=== PATIENT | male | born 1985 | race Caucasian/White ===

== ENCOUNTER 2018-04-12 13:10 | Emergency (ER) | payer MEDICAID ==
[~2018-04-12] VITALS: Ht 160 cm; Wt 73.5 kg
[2018-04-12 13:15] VITALS: BP 138/87; PULSE 99; RESP 19; Ht 160 cm; Wt 73.5 kg
--- NOTE | 2018-04-12 13:50 | ERD ---
ER Documentation Chief Complaint Chief Complaint throat pain x this am HPI 32-year-old male presents with history of feeling like there is a foreign body in his throat. States that he went out last night and drank some beers, woke up this morning throughout the night since then has felt foreign body sensation. Denies any stridor or wheezing but states that the feeling makes him want to clear up. Denies eating any foods that might of gotten stuck in there. Denies any throat pain, drooling, trismus, difficulty swallowing fevers, chills., Denies past medical history. Denies allergies. Denies medications. Denies surgeries. Denies alcohol, tobacco, drug use. Up to date on vaccines. ROS All systems reviewed and are negative except as per history of present illness. Medications Home Meds Active Scripts Diphenhydramine Hcl* (Benadryl*) 50 Mg Cap, 50 MG PO Q6 PRN for ALLERGIC REACTION, #30 CAP Prov:JARRELL GASTELUM 04/12/18 Prednisone* (Prednisone*) 20 Mg Tab, 40 MG PO DAILY for 4 Days, TAB Prov:JARRELL GASTELUM 04/12/18 Allergies Allergies: Coded Allergies: No Known Allergy (Unverified , 04/12/18) PMhx/Soc Medical and Surgical Hx: pt denies Medical Hx, pt denies Surgical Hx Hx Alcohol Use: Yes Hx Substance Use: No Hx Tobacco Use: No Smoking Status: Never smoker FmHx Family History: No diabetes, No coronary disease, No other Physical Exam Vitals Vital Signs Date Temp Pulse Resp B/P (MAP) Pulse Ox O2 O2 Flow FiO2 Time Delivery Rate 04/12/18 97.0 99 19 138/87 97 13:15 (104) Physical Exam Const: No acute distress Head: Atraumatic Eyes: Normal Conjunctiva ENT: Normal External Ears, Nose and Mouth. Airway is patent, without stridor, however the uvula is is erythematous and edematous.. No cyanosis or pallor. No drooling noted. No tenderness to palpation upon manipulation of the cricoid cartilage. No foreign bodies or obstructions noted. Neck: Full range of motion. No meningismus. Resp: Clear to auscultation bilaterally Cardio: Regular rate and rhythm, no murmurs Abd: Soft, non tender, non distended. Normal bowel sounds Skin: No petechiae or rashes Back: No midline or flank tenderness Ext: No cyanosis, or edema Neur: Awake and alert Psych: Normal Mood and Affect Results 24 hrs Current Medications Medications Dose Sig/Ivy Start Time Status Last (Trade) Ordered Route PRN Stop Time Admin Dose Reason Admin 10 mg ONCE ONCE 04/12/18 DC 04/12/18 Dexamethasone IM 14:00 14:03 (Decadron) 04/12/18 14:01 50 mg ONCE ONCE 04/12/18 DC 04/12/18 Diphenhydrami IM 14:00 14:03 ne HCl 04/12/18 14:01 (Benadryl) Famotidine 40 mg ONCE ONCE 04/12/18 DC 04/12/18 (Pepcid) PO 14:00 14:03 04/12/18 14:01 Procedures/MDM MDM: 32-year-old male presents with history of feeling like there is a foreign body in his throat. States that he went out last night and drank some beers, woke up this morning throughout the night since then has felt foreign body sensation. Denies any stridor or wheezing but states that the feeling makes him want to clear up. Denies eating any foods that might of gotten stuck in there. Denies any throat pain, drooling, trismus, difficulty swallowing fevers, chills. Patient given IM Decadron, Benadryl, and p.o. Pepcid. I will suspicion for anaphylaxis, airway obstruction, angioedema, epiglottitis, peritonsillar abscess, or other emergent condition. Patient exhibited no signs of airway obstruction throughout the ER course tolerated the allergic reaction treatment well. Patient discharged with Rx for Decadron and Benadryl. Patient discharged with strict ER precautions. Patient advised to follow up with PMD. All questions answered at discharge. Departure Diagnosis: Primary Impression: Uvulitis Condition: Stable JARRELL GASTELUM Apr 12, 2018 13:50
[2018-04-12] MEDS ORDERED: DEXAMETHASONE 10 MG/ML 1 ML INJ IM ONE (14:00)
[2018-04-12] MEDS ORDERED: DIPHENHYDRAMINE 50 MG INJ IM ONE (14:00)
[2018-04-12] MEDS ORDERED: FAMOTIDINE 20 MG TAB PO ONE (14:00)
[2018-04-12] MEDS ORDERED: BEN50 PO (15:43)
[2018-04-12] MEDS ORDERED: PRED20TA PO (15:43)
== END 2018-04-12 16:10 | disposition home or self-care (01) ==
LOC: FTE 13:10
DX: K12.2 Cellulitis and abscess of mouth (principal)
CPT/HCPCS: 70360; 96372; J1100; J1200; Z7502; Z7610

== ENCOUNTER 2018-04-20 12:32 | Emergency (ER) | payer MEDICAID ==
[~2018-04-20] VITALS: Ht 165.1 cm; Wt 70.5 kg
[~2018-04-20 12:32] MED LIST: BEN50 PO; PRED20TA PO
[2018-04-20 12:34] VITALS: Ht 165.1 cm; Wt 70.5 kg
[2018-04-20] MEDS ORDERED: SOD CHLORIDE 0.9% 1,000 ML IV STA (15:31)
[2018-04-20] MEDS ORDERED: ONDANSETRON 4 MG INJ IV STA (15:31)
--- NOTE | 2018-04-20 15:37 | ERD ---
ER Documentation Chief Complaint Chief Complaint headache x 3 days with n/v; no neuro deficits HPI Patient is a 32-year-old male with no past medical history presents the ER for concerns of headache for the last 3 days. Patient states yesterday he developed dizziness. He describes his dizziness to be a room spinning sensation. Patient states he also feels nauseous and has been vomiting. Patient reports vomiting 3 times today. Patient states without movement his dizziness is minimal. Patient denies any visual changes, fevers, chills, chest pain, shortness of breath or LOC. Patient denies any unilateral weakness, slurred speech, difficulty ambulating. Patient was seen here last week for concerns of a foreign body sensation in his throat. Patient states his symptoms have fully resolved. ROS All systems reviewed and are negative except as per history of present illness. Medications Home Meds Active Scripts Acetaminophen* (Tylophen*) 500 Mg Capsule, 1 CAP PO Q6H PRN for PAIN AND OR ELEVATED TEMP, #20 CAP Prov:SERGIO KAPLAN PA-C 04/20/18 Ondansetron (Ondansetron Odt) 4 Mg Tab.rapdis, 4 MG PO Q6H PRN for NAUSEA AND/OR VOMITING, #10 TAB Prov:SERGIO KAPLAN-C 04/20/18 Meclizine Hcl* (Antivert*) 12.5 Mg Tab, 12.5 MG PO Q6H PRN for DIZZINESS, #20 TAB Prov:SERGIO KAPLAN-C 04/20/18 Diphenhydramine Hcl* (Benadryl*) 50 Mg Cap, 50 MG PO Q6 PRN for ALLERGIC REACTION, #30 CAP Prov:JARRELL GASTELUM 04/12/18 Prednisone* (Prednisone*) 20 Mg Tab, 40 MG PO DAILY for 4 Days, TAB Prov:JARRELL GASTELUM 04/12/18 Allergies Allergies: Coded Allergies: No Known Allergy (Unverified , 04/12/18) PMhx/Soc Hx Alcohol Use: Yes Hx Substance Use: No Hx Tobacco Use: No FmHx Family History: No diabetes Physical Exam Vitals Vital Signs Date Temp Pulse Resp B/P (MAP) Pulse Ox O2 O2 Flow FiO2 Time Delivery Rate 04/20/18 97.8 96 17 142/94 100 12:34 (110) Physical Exam GENERAL: Well-developed, well-nourished female. Appears in no acute distress. Speaking in full sentences. HEAD: Normocephalic, atraumatic. No deformities or ecchymosis. EYE: Pupils equal, round, and reactive to light. EOMs intact. No conjunctival erythema. No eye discharge. ENT: External ear without any masses or tenderness. Auditory canals clear bilaterally. TM visualized bilaterally, non-erythematous, non-bulging. Nasal mucosa pink with no discharge. Oropharynx is pink without any tonsillar erythema or exudates. No uvula deviation. No kissing tonsils. NECK: Supple. No meningismus. Normal ROM of the neck. LUNG: Clear to auscultation bilaterally. No rhonchi, wheezing, rales or coarse b reath sounds. HEART: Regular rate and rhythm. No murmurs, rubs or gallops. EXTREMITES: Equal pulses bilaterally. No peripheral clubbing, cyanosis or edema. No unilateral leg swelling. NEUROLOGIC: Alert and oriented x3, cooperative. Mood and affect appropriate to situation. Cranial nerves II through XII are grossly intact. Normal speech. Motor exam: 5/5 strength in upper and lower extremities. Sensory exam: Sensation intact to light touch on all four extremities. Cerebellar function exam: Rapid alternating movements intact. No dysmetria on [id number] and [id number]-ix-[id number] test. Steady gait. No pronator drift. SKIN: Normal color. Warm and dry. No rashes or lesions. Result Diagram: 04/20/18 1536 04/20/18 1536 Results 24 hrs Laboratory Tests Test 04/20/18 15:36 White Blood Count 12.7 10^3/ul Red Blood Count 5.68 10^6/ul Hemoglobin 16.7 g/dl Hematocrit 48.6 % Mean Corpuscular Volume 85.6 fl Mean Corpuscular Hemoglobin 29.4 pg Mean Corpuscular Hemoglobin Concent 34.4 g/dl Red Cell Distribution Width 12.4 % Platelet Count 314 10^3/UL Mean Platelet Volume 10.6 fl Immature Granulocytes % 0.400 % Neutrophils % 83.8 % Lymphocytes % 12.9 % Monocytes % 2.5 % Eosinophils % 0.2 % Basophils % 0.2 % Nucleated Red Blood Cells % 0.0 /100WBC Immature Granulocytes # 0.050 10^3/ul Neutrophils # 10.6 10^3/ul Lymphocytes # 1.6 10^3/ul Monocytes # 0.3 10^3/ul Eosinophils # 0.0 10^3/ul Basophils # 0.0 10^3/ul Nucleated Red Blood Cells # 0.0 10^3/ul Sodium Level 141 mmol/L Potassium Level 3.8 mmol/L Chloride Level 103 mmol/L Carbon Dioxide Level 26 mmol/L Anion Gap 12 Blood Urea Nitrogen 15 mg/dl Creatinine 0.75 mg/dl Est Glomerular Filtrat Rate mL/min > 60 mL/min Glucose Level 138 mg/dl Calcium Level 10.0 mg/dl Total Bilirubin 0.7 mg/dl Direct Bilirubin 0.00 mg/dl Indirect Bilirubin 0.7 mg/dl Aspartate Amino Transf (AST/SGOT) 25 IU/L Alanine Aminotransferase (ALT/SGPT) 27 IU/L Alkaline Phosphatase 128 IU/L Total Protein 8.4 g/dl Albumin 4.7 g/dl Globulin 3.70 g/dl Albumin/Globulin Ratio 1.27 Current Medications Medications Dose Sig/Ivy Start Time Status Last (Trade) Ordered Route PRN Stop Time Admin Dose Reason Admin Sodium 1,000 ml @ Q1H STAT 04/20/18 04/20/18 Chloride 1,000 mls/hr IV 15:31 04/20/18 15:41 16:30 Ondansetron 4 mg ONCE STAT 04/20/18 DC 04/20/18 HCl (Zofran IV 15:31 04/20/18 15:44 Inj) 15:33 Meclizine 25 mg ONCE ONCE 04/20/18 DC 04/20/18 HCl PO 16:00 04/20/18 15:44 (Antivert) 16:01 Procedures/MDM MEDICAL DECISION MAKING: This is a 32-year-old male who presents the ER for concerns of headache times 3 days as well as dizziness times 1 day. Patient states he did have some vomiting this morning. Patient describes his dizziness to be a room spinning sensation. Dizziness is worse with positional changes. Patient denies any unilateral weakness, slurred speech or difficulty ambulating. Vital signs were reviewed. Patient was afebrile. Patient was not hypoxic. Full neuro exam was normal. IV line was established. Blood work was obtained. CBC showed no evidence of severe anemia. Slight elevation WBC count noted however likely due to recent vomiting. CMP showed no evidence of electrolyte abnormalities, severe acidosis, alkalosis, renal failure, or liver disease. Upon reexamination of symptoms, patient reported improvement in symptoms. At this time, patient presentation is most consistent with benign paroxysmal positional vertigo. Low suspicion for meningitis, encephalitis, intracranial hemorrhage, TIA, CVA, sclerosis, labyrinthitis, vestibular neuritis, severe electrolyte abnormalities, sepsis. Patient was nontoxic, [id number] prior to discharge. PRESCRIPTIONS: Meclizine Zofran Tylenol DISCHARGE: At this time, patient is stable for discharge and outpatient management. I have instructed the patient to follow-up with his/her primary care physician in 1-2 days. If symptoms persist, patient may need to see a specialist for further examinations and testing. I have instructed the patient to promptly return to the ER at any time for any new or worsening symptoms including increased increased pain, fever, nausea, vomiting, numbness, weakness, slurred speech, LOC. The patient and/or family expressed understanding of and agreement with this plan. All questions were answered. Home care instructions were provided. Patients blood pressure was elevated (>120/80) but appears stable without evidence of hypertensive emergency, hypertensive urgency or end-organ failure. I had discussion with the patient about the risks of hypertension. I have advised the patient to follow up with his/her primary care physician for outpatient monitoring and treatment for hypertension in 2-3 days. I have instructed the patient to return to the ER for any new or worsening symptoms including chest pain, shortness of breath, headache, blurred vision, confusion, nausea, vomiting or LOC. Disclaimer: Inadvertent spelling and grammatical errors are likely due to EHR/dictation software use and do not reflect on the overall quality of patient care. Also, please note that the electronic time recorded on this note does not necessarily reflect the actual time of the patient encounter. Departure Diagnosis: Primary Impression: Benign positional vertigo Laterality: unspecified laterality Qualified Codes: H81.10 - Benign paroxysmal vertigo, unspecified ear Additional Impression: Headache Headache type: unspecified Headache chronicity pattern: unspecified pattern Intractability: not intractable Qualified Codes: R51 - Headache Condition: Fair Patient Instructions: Self-Care for Headaches, Benign Positional Vertigo Referrals: COMMUNITY CLINICS YOU HAVE RECEIVED A MEDICAL SCREENING EXAM AND THE RESULTS INDICATE THAT YOU DO NOT HAVE A CONDITION THAT REQUIRES URGENT TREATMENT IN THE EMERGENCY DEPARTMENT. FURTHER EVALUATION AND TREATMENT OF YOUR CONDITION CAN WAIT UNTIL YOU ARE SEEN IN YOUR DOCTORS OFFICE WITHIN THE NEXT 1-2 DAYS. IT IS YOUR RESPONSIBILITY TO MAKE AN APPOINTMENT FOR FOLOW-UP CARE. IF YOU HAVE A PRIMARY DOCTOR --you should call your primary doctor and schedule an appointment IF YOU DO NOT HAVE A PRIMARY DOCTOR YOU CAN CALL OUR PHYSICIAN REFERRAL HOTLINE AT IF YOU CAN NOT AFFORD TO SEE A PHYSICIAN YOU CAN CHOSE FROM THE FOLLOWING [facility] [address] [facility] [address] [facility] [address] [facility] [address] [facility] [address] [facility]. [facility] [address] [facility]. [facility] YOU HAVE RECEIVED A MEDICAL SCREENING EXAM AND THE RESULTS INDICATE THAT YOU DO NOT HAVE A CONDITION THAT REQUIRES URGENT TREATMENT IN THE EMERGENCY DEPARTMENT. FURTHER EVALUATION AND TREATMENT OF YOUR CONDITION CAN WAIT UNTIL YOU ARE SEEN IN YOUR DOCTORS OFFICE WITHIN THE NEXT 1-2 DAYS. IT IS YOUR RESPONSIBILITY TO MAKE AN APPOINTMENT FOR FOLOW-UP CARE. IF YOU HAVE A PRIMARY DOCTOR --you should call your primary doctor and schedule and appointment IF YOU DO NOT HAVE A PRIMARY DOCTOR YOU CAN CALL OUR PHYSICIAN REFERRAL HOTLINE AT . IF YOU CAN NOT AFFORD TO SEE A PHYSICIAN YOU CAN CHOSE FROM THE FOLLOWING [facility]: [facility] [address] [place] [address] [facility] [address] [place] [address] [facility] + [facility] [address] [place] [address] Additional Instructions: Call your primary care doctor TOMORROW for an appointment during the next 1-2 days.See the doctor sooner or return here if your condition worsens before your appointment time. SERGIO KAPLAN PA-C Apr 20, 2018 15:37
[2018-04-20] MEDS ORDERED: MECLIZINE 12.5 MG TAB PO ONE (16:00)
[2018-04-20] MEDS ORDERED: ONDA4TAB14 PO (16:28)
[2018-04-20] MEDS ORDERED: MECL12.574 PO (16:28)
[2018-04-20] MEDS ORDERED: ACET500C5 PO (16:28)
[2018-04-20 16:39] VITALS: BP 118/64; PULSE 89; RESP 18
== END 2018-04-20 17:14 | disposition home or self-care (01) ==
LOC: FTE 12:32
DX: H81.13 Benign paroxysmal vertigo, bilateral (principal)
CPT/HCPCS: 36415; 80053; 85025; 96374; J2405; J7030; Z7502; Z7610